=== PATIENT | female | born 1965 | race Caucasian/White ===

== ENCOUNTER 2017-04-04 12:57 | Emergency (ER) | payer OTHER ==
[~2017-04-04] VITALS: Ht 162.6 cm; Wt 67.6 kg
[~2017-04-04 12:57] MED LIST: BACTRIM1 TAB PO; CIPRO500 MG PO
[2017-04-04 14:53] LABS: microscopic required? YES; urine erythrocyte TRACE (NEGATIVE)
[2017-04-04 15:52] VITALS: BP 112/72
== END 2017-04-04 15:52 | disposition home or self-care (01) ==
LOC: ED 12:57
PROVIDERS: Emergency Medicine
DX: G44.209 Tension-type headache, unspecified, not intractable (principal); N39.0 Urinary tract infection, site not specified
CPT/HCPCS: J0780; J1885